=== PATIENT | female | born 1985 | race Caucasian/White ===

== ENCOUNTER 2018-03-03 08:31 | Emergency (ER) | payer OTHER ==
[~2018-03-03] VITALS: Ht 167.6 cm; Wt 78.0 kg
[~2018-03-03 08:31] MED LIST: LISI10TA11 PO
[2018-03-03 08:36] VITALS: BP 128/96
--- NOTE | 2018-03-03 08:46 | NUR ---
Patient ambulated to bed 5. RN evaluating patient at bedside.
--- NOTE | 2018-03-03 08:50 | NUR ---
Dr. Vargas evaluating patient at bedside.
--- NOTE | 2018-03-03 09:00 | NUR ---
PT. CAME INTO THE ED DUE TO L RIB PAIN X 4 DAYS. PT. DENIES INJURY OR TRAUMA. PT. 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 01/14 SHARP PAIN IN L RIB AREA THAT IS NON RADIATING. DENIES SOB, DENIES N/V/D. RR EVEN AND UNLABORED. LS: ECHO BILANKITA . ER NOTIFIED. WILL CONTINUE TO MONITOR. SAFETY PRECAUTIONS INITIATED.
--- NOTE | 2018-03-03 09:08 | NUR ---
Dr. Noel evaluating patient at bedside.
[2018-03-03] MEDS ORDERED: IBUPROFEN 400 MG TAB PO ONE (09:15)
[2018-03-03 09:32] VITALS: BP 127/88
== END 2018-03-03 09:32 | disposition home or self-care (01) ==
LOC: MED 08:31
DX: R07.89 Other chest pain (principal); M62.830 Muscle spasm of back; I10 Essential (primary) hypertension; F41.9 Anxiety disorder, unspecified
CPT/HCPCS: 99283

== ENCOUNTER 2018-07-18 09:02 | Emergency (ER) | payer OTHER ==
[~2018-07-18] VITALS: Ht 167.6 cm; Wt 79.9 kg
[2018-07-18 09:10] VITALS: BP 135/80
[2018-07-18] MEDS: OSELTAMIVIR PHOSPHATE 75 MG CAP PO ONE (10:00)
[2018-07-18 10:43] VITALS: BP 137/73
== END 2018-07-18 10:43 | disposition home or self-care (01) ==
LOC: MED 09:02
DX: J11.1 Influenza due to unidentified influenza virus with other respiratory manifestations (principal); I10 Essential (primary) hypertension; Z79.899 Other long term (current) drug therapy
CPT/HCPCS: 36415; 87804; 99283

== ENCOUNTER 2022-01-10 14:28 | Emergency (ER) | payer OTHER ==
[~2022-01-10] VITALS: Ht 167.6 cm; Wt 86.2 kg
[~2022-01-10 14:28] MED LIST changes: +LISI-486 PO; -LISI10TA11 PO
[2022-01-10 14:57] VITALS: BP 170/101
--- NOTE | 2022-01-10 22:11 | NUR ---
Called first time- no show in lobby or outside.
--- NOTE | 2022-01-10 22:23 | NUR ---
Called second time- no show in lobby or outside.
--- NOTE | 2022-01-10 22:56 | NUR ---
Called third time - no show in lobby or outside.
--- NOTE | 2022-01-10 22:56 | NUR ---
PATIENT LEFT WITHOUT BEING SEEN BY DR. Ash. NO FURTHER CARE PROVIDED FOR PATIENT.
== END 2022-01-10 22:56 | disposition left against medical advice (07) ==
LOC: MED 14:28
DX: R51.9 Headache, unspecified (principal); R06.02 Shortness of breath; I10 Essential (primary) hypertension; Z53.21 Procedure and treatment not carried out due to patient leaving prior to being seen by health care provider

== ENCOUNTER 2022-09-29 20:41 | Emergency (ER) | payer OTHER ==
[~2022-09-29] VITALS: Ht 167.6 cm; Wt 81.6 kg
[2022-09-29 21:15] VITALS: BP 146/94
--- NOTE | 2022-09-29 21:18 | NUR ---
TO LOBBY A/W BED AMBULATORY
--- NOTE | 2022-09-29 21:27 | NUR ---
URINE TO LAB
[2022-09-29 22:32] LABS: APPEARANCE,URINE HAZY (CLEAR); BILIRUBIN,URINE NEGATIVE (NEGATIVE); BLOOD, URINE TRACE-I (NEGATIVE); COLOR,URINE YELLOW (YELLOW); LEUKOCYTE ESTERASE ,URINE NEGATIVE (NEGATIVE); NITRITE, URINE POSITIVE (NEGATIVE); UGLUCOSE NEGATIVE (NEGATIVE)
[2022-09-29 22:45] LABS: RBC,URINE 0-5 /HPF (0-5); WBC,URINE 0-5 /HPF (0-5)
[2022-09-29] MEDS ORDERED: NITR100C7 PO (22:53)
[2022-09-29] MEDS ORDERED: PHEN-1877 PO (22:53)
--- NOTE | 2022-09-29 23:00 | NUR ---
Patient discharged with v/s stable. Written and verbal after care instructions given and explained. Patient verbalized understanding. Ambulatory with steady gait. All questions addressed prior to discharge. Advised to follow up with PMD.
== END 2022-09-29 23:00 | disposition home or self-care (01) ==
LOC: MED 20:41
DX: N39.0 Urinary tract infection, site not specified (principal); I10 Essential (primary) hypertension; Z98.890 Other specified postprocedural states; Z79.899 Other long term (current) drug therapy
CPT/HCPCS: 81001; 87086; 99283

== ENCOUNTER 2022-11-19 08:38 | Emergency (ER) | payer OTHER ==
[~2022-11-19] VITALS: Ht 167.6 cm; Wt 83.5 kg
[~2022-11-19 08:38] MED LIST changes: +NITR100C7 PO; +PHEN-1877 PO
[2022-11-19 08:55] VITALS: BP 161/93
--- NOTE | 2022-11-19 09:00 | NUR ---
PT AMBULATED TO BED 04
--- NOTE | 2022-11-19 09:36 | NUR ---
MD HANSEN AT BEDSIDE FOR EVALUATION
== END 2022-11-19 10:05 | disposition home or self-care (01) ==
LOC: MED 08:38
DX: R20.0 Anesthesia of skin (principal); I10 Essential (primary) hypertension; Z79.899 Other long term (current) drug therapy; Z98.890 Other specified postprocedural states
CPT/HCPCS: 73130; 99283; Q0092